=== PATIENT | female | born 1995 | race African-American/Black ===

== ENCOUNTER 2023-03-20 15:23 | Emergency (ER) | payer OTHER, SELFPAY ==
--- NOTE | 2023-03-20 17:16 | ED.GENADULT ---
HPI - General Adult General Chief complaint: Wound/Laceration Stated complaint: left 4th finger injury Time Seen by Provider: 03/20/23 17:02 Source: patient Mode of arrival: ambulatory Limitations: no limitations History of Present Illness HPI narrative: This is a 27-year-old female who presents to the ED with chief complaint of a left fourth finger injury that occurred last night. The injury occurred around 24 hours ago. She reports she accidentally caught the left fourth finger with a kitchen knife while chopping in the kitchen. She attempted to dress the wound with a cotton ball and because. She reports it is becoming more painful and hard today. Denies numbness, weakness or any further site of pain or injury. Related Data Allergies Allergy/AdvReac Type Severity Reaction Status Date / Time No Known Allergies Allergy Verified 03/20/23 17:45 Review of Systems Review of Systems: All systems as dictated in HPI Exam Narrative: GENERAL: Well-appearing, well-nourished, and in no acute distress. HEAD: Normocephalic, atraumatic. EYES: PERRLA and EOMI. ENT: Nares clear, no rhinorrhea or epistaxis. Mucous membranes moist. Oropharynx without tonsillar hypertrophy exudate or other lesions. NECK: Supple. No adenopathy or masses. CHEST: No respiratory distress. Clear to auscultation. No wheezes rales or rhonchi HEART: Regular rate and rhythm. No murmur heard. Normal peripheral pulses. ABDOMEN: Soft, nontender, nondistended, normal active bowel sounds. MSK: Normal range of motion. No edema. SKIN: There is a 1.5 cm avulsion injury to the distal left fourth finger. Part of the distalmost portion of the nail is avulsed. It is dressed with gauze and a cottonball in the wound bed. The skin has epithelialized into the cotton. NEURO: Alert and oriented x3. No focal deficits. PSYCH: Normal mood and affect. Course Vital Signs Vital signs: Vital Signs Pulse Rate 89 03/20/23 17:52 Respiratory Rate 18 03/20/23 17:52 Pulse Oximetry 100 03/20/23 17:52 Temperature 98.3 F 03/20/23 18:27 Pulse Rate 89 03/20/23 18:27 Respiratory Rate 20 03/20/23 18:27 Blood Pressure 128/87 03/20/23 18:27 Pulse Oximetry 100 03/20/23 18:27 Medical Decision Making MDM Narrative Medical decision making narrative: This is a 27-year-old female who presents to the ED with chief complaint of a finger avulsion injury that happened 24 hours ago. Accidentally cut the end of the left fourth finger with a kitchen knife. Vitals are normal. She attempted to dress the wound with gauze and a cotton swab in the wound bed. The wound is clotting and at this morning exam with cotton. We had to soak the finger in for several minutes and several times to the remove the cotton to the skin. A nonadherent pad, gauze dressing was then placed. Started on short course of antibiotics and instructed to follow-up with hand specialist. Referral given. Pt will be discharged in stable condition with bleeding controlled. Return precautions given and supportive measures discussed. Pt is understanding and agreeable with plan for discharge and follow-up with PCP. Vital Signs Vital Signs: Vital Signs Pulse Rate 89 03/20/23 17:52 Respiratory Rate 18 03/20/23 17:52 Pulse Oximetry 100 03/20/23 17:52 Temperature 98.3 F 03/20/23 18:27 Pulse Rate 89 03/20/23 18:27 Respiratory Rate 20 03/20/23 18:27 Blood Pressure 128/87 03/20/23 18:27 Pulse Oximetry 100 03/20/23 18:27 Discharge Plan Discharge Clinical Impression: Avulsion of skin, Avulsed fingernail Patient Disposition: Home, Self-Care Condition: Stable Instructions: Antibiotic Form Additional Instructions: You were seen in the emergency department for a finger avulsion. We are unable to primarily closed the avulsion due to the openness of the wound and because it has been over 24 hours. Please take antibiotics as prescribed to prevent infe
[2023-03-20] MEDS: HYDROmorphone HCL INJ (*CRX) 1 MG/ML SYR IM (17:45)
[2023-03-20] MEDS: Please add drug allergy info to patient profile. 1 EACH XX (17:45)
[2023-03-20 17:52] VITALS: PULSE 89; RESP 18; O2SAT 100
[2023-03-20 18:27] VITALS: BP 128/87; PULSE 89; RESP 20; TEMP 36.8; O2SAT 100
== END 2023-03-20 18:58 | disposition home or self-care (01) ==
PROVIDERS: Emergency Provider Physician Assistant
DX: S61.315A Laceration without foreign body of left ring finger with damage to nail, initial encounter (principal); W26.0XXA Contact with knife, initial encounter
CPT/HCPCS: 96372; 99283; J1170